=== PATIENT | female | born 1940 | race Caucasian/White ===

== ENCOUNTER 2023-07-28 10:01 | Emergency (ER) | payer OTHER, SELFPAY ==
[2023-07-28 10:05] VITALS: BP 108/55
[2023-07-28 10:39] VITALS: BMI 23.9
--- NOTE | 2023-07-28 10:40 | ED.GENMED ---
History of Present Illness
General
Chief Complaint: Headache
Source: patient
Exam Limitations: none
Time Seen by Provider: 07/28/23 10:27
Travel History
Have you had any contact with someone who has COVID-19?: No
Do you have any symptoms of coronavirus? Fever > 100 degrees, chills, cough, shortness of breath, sore throat, loss of taste or smell, muscle aches, or headache?: No
History of Present Illness
History of Present Illness:
82-year-old female on Eliquis for history of atrial fibrillation presents with fatigue neck pain and headache. This was preceded by several days of multiple episodes of loose watery stool. She has been taking Imodium which seems to have slowed the
diarrhea down. She denies any significant abdominal pain. She feels that she looks pale. She denies any double vision blurry vision or loss of vision. She states the back of her head and neck are very stiff. She has trouble moving her neck
[id number]. [place]. No chest pain. No other complaints at this time
Phy Exam
Physical Exam
Physical Exam:
General: Well-appearing female no acute respiratory distress
HEENT: Normocephalic atraumatic mucosa dry
Heart: Irregular rate and rhythm no murmurs
Lungs: Clear no wheeze
Abdomen: Soft nontender nondistended
Musculoskeletal exam: Patient has tenderness about the cervical spine and has significant decreased range of motion cervical spine.
Neurologic: Alert pupils equal round reactive to light good strength to the upper and lower extremity
Course
Orders/Labs/Results
Orders:
Orders
07/28/23 10:39
CT Cervical Spine W/o Iv Contr Urgent
Comment:
Reason For Exam: neck pain
CT Head W/o Iv Contrast Urgent
Comment:
Reason For Exam: headache, on Eliquis
0.9% Sodium Chloride 1000 ml [Nss] 1,000 ml IV BOLUS
07/28/23 10:50
Complete Blood Count/With Diff Urgent
Comprehensive Metabolic Panel Urgent
Abnormal Lab Results
07/28/23
10:50
WBC 15.0 H 10^3/uL
(4.8-10.8)
RDW 15.0 H %
(11.5-14.5)
Abs Immat Gran (auto) 0.1 H 10^3/uL
(0-0.05)
Absolute Neuts (auto) 9.5 H 10^3/uL
(1.4-6.5)
Absolute Monos (auto) 1.4 H 10^3/uL
(0.1-0.6)
Absolute Eos (auto) 0.8 H 10^3/uL
(0-0.7)
Immature Gran % 0.7 H %
(0-0.5)
Monocytes % 9.6 H %
(1.7-9.3)
Chloride 110 H mmol/L
(98-107)
Carbon Dioxide 17 L mmol/L
(22-30)
BUN 29 H mg/dl
(7-17)
Creatinine 1.2 H mg/dL
(0.6-1.0)
Glucose 111 H mg/dl
(70-99)
07/28/23 10:50
07/28/23 10:50
Vital Signs
Initial and Last Documented VS:
Initial Vital Signs
Temp Pulse Resp BP Pulse Ox
98.0 F 71 16 108/55 98
07/28/23 10:05 07/28/23 10:05 07/28/23 10:05 07/28/23 10:05 07/28/23 10:05
Last Documented Vital Signs
Temp Pulse Resp BP Pulse Ox
98.0 F 71 16 106/59 98
07/28/23 10:05 07/28/23 10:05 07/28/23 10:05 07/28/23 13:28 07/28/23 13:28
MDM/Problems Addressed
Differential Diagnosis Includes:
Headache neck pain loose stool and fatigue. Question viral illness or cervical strain versus hematoma or bleed secondary to anticoagulated state. Check electrolytes and hemoglobin. Fluids ordered
*Critical Care Note
Total Time (30-74mins, 75-104mins- exclusive of procedures): Not Applicable
Update Note
Update Note:
Abdominal exam upon reassessment still benign. Labs reviewed slight leukocytosis consistent with recent viral illness. CT of head and cervical spine negative. Patient feels little bit better after hydration. I suspect neck discomfort is of
cervical strain perhaps from sleeping in a different bed. Do not suspect meningitis. Patient is hungry wants to go home. Will recommend muscle relaxers and Tylenol. Stable for discharge
ED Attending Note
-
Portions of this chart may have been created with voice recognition software.� Occasional wrong word or��sound alike� substitutions may have occurred due to the inherent limitations of voice recognition software.
Discharge Plan
Departure
Patient Disposition: Home (Routine Discharge)
Date of Disposition: 07/28/23
Time of Disposition: 13:10
Patient with high blood pressure during this ER visit?: No
Discharge Problem:
Cervical strain
Instructions: Cervical Sprain ED
Prescriptions:
New
methocarbamol 500 mg tablet
500 mg PO Q8H PRN (Reason: spasm) Qty: 10 0RF
No Action
paroxetine HCl 20 MG tablet
20 mg PO DAILY
omeprazole 20 MG capsule,delayed release(DR/EC)
20 mg PO QPM
atorvastatin 40 MG tablet
40 mg PO DAILY
valsartan 80 MG tablet
80 mg PO DAILY
amlodipine 5 MG tablet
5 mg PO DAILY
metoprolol succinate 50 MG tablet extended release 24 hr
50 mg PO QPM
apixaban [Eliquis] 5 MG tablet
5 mg PO BID
Referrals:
NONE,* [Family Provider] -
Activity Restrictions/Additional Instructions:
Rest. Continue with Tylenol for pain. Continue with warm compresses. Drink plenty of clear liquids and start with bland diet. Return for worsening symptoms otherwise follow-up with family doctor
Interventions
Interventions:
*Risk Screen - Suicide Last Done: 07/28/23 10:40
*General Assessment Last Done: 07/28/23 10:40
*Neglect/Abuse Screening Last Done: 07/28/23 10:40
ED- Fall Risk Assessment Last Done: 07/28/23 10:40
*ED COVID-19 Vaccine History Last Done: 07/28/23 10:05
*Nursing Disposition Last Done: 07/28/23 13:28
ED- Neurological Assessment Last Done: 07/28/23 10:40
Discharge Date and Time
Discharge Date/Time: 07/28/23 13:30
Print Language: [id number]
[2023-07-28] MEDS: NSS 1000 IV (10:50)
[2023-07-28 11:09] LABS: % Basophils 0.2 % (0-2); % Eosinophils 5.1 % (0-6); % Immature Granulocytes 0.7 % (0-0.5); % Lymphocytes 21.3 % (20.5-51.1); % Monocytes 9.6 % (1.7-9.3); % Neutrophils 63.1 % (42.2-75.2); Absolute Eosinophils 0.8 10^3/uL (0-0.7); Absolute Immature Granulocytes 0.1 10^3/uL (0-0.05); Absolute Lymphocytes 3.2 10^3/uL (1.2-3.4); Absolute Monocytes 1.4 10^3/uL (0.1-0.6); Absolute Neutrophils 9.5 10^3/uL (1.4-6.5); Hematocrit 38.8 % (37.0-47.0); Hemoglobin 12.8 g/dL (12.0-16.0); Mean Corpuscular Hgb 29.4 pg (27.0-31.0); Mean Corpuscular Volume 89.2 fL (81.0-99.0); Mean Platelet Volume 9.7 fL (7.4-10.4); Nucleated Red Blood Cells % 0 %; Platelet Count 259 10^3/uL (130-400); Red Blood Cell Count 4.35 10^6/uL (4.20-5.40)
[2023-07-28 11:24] LABS: ALT (SGPT) 23 U/L (0-35); AST (SGOT) 32 U/L (14-36); Albumin 3.7 g/dl (3.5-5.0); Alkaline Phosphatase 88 U/L (38-126); Blood Urea Nitrogen 29 mg/dl (7-17); Calcium 8.9 mg/dl (8.4-10.2); Carbon Dioxide 17 mmol/L (22-30); Chloride 110 mmol/L (98-107); Estimated Creatinine Clearance 30 ml/min; Glucose 111 mg/dl (70-99); Potassium 4.4 mmol/L (3.5-5.1); Sodium 139 mmol/L (135-145); Total Bilirubin 0.4 mg/dl (0.2-1.3); Total Protein 6.4 g/dl (6.3-8.2); eGFR 45.76
[2023-07-28 13:28] VITALS: BP 106/59
== END 2023-07-28 13:30 | disposition home or self-care (01) ==
LOC: EMR 10:01
PROVIDERS: Physician Assistant; EMERGENCY PHYSICIAN Emergency Medicine
DX: S16.1XXA Strain of muscle, fascia and tendon at neck level, initial encounter (principal); X58.XXXA Exposure to other specified factors, initial encounter; Z79.01 Long term (current) use of anticoagulants
CPT/HCPCS: 99284; 96360; 70450; 72125; 80053; 85025

== ENCOUNTER → 2023-08-21 13:07 | Outpatient (REF) | payer OTHER, SELFPAY | LOC: WDC 13:07 | PROVIDERS: ATTENDING PHYSICIAN Physician Assistant | DX: Z12.31 Encounter for screening mammogram for malignant neoplasm of breast (principal) | CPT/HCPCS: 77063; 77067 ==

== ENCOUNTER → 2024-02-05 10:19 | Outpatient (REF) | payer OTHER, SELFPAY | LOC: RCS 10:19 | PROVIDERS: ATTENDING PHYSICIAN Internal Medicine Cardiovascular Disease; FAMILY PHYSICIAN Physician Assistant | DX: I48.91 Unspecified atrial fibrillation (principal) | CPT/HCPCS: 93306 ==

== ENCOUNTER → 2024-08-16 13:15 | Outpatient (REF) | payer OTHER, SELFPAY | LOC: HWRAD 13:15 | PROVIDERS: ATTENDING PHYSICIAN Physician Assistant Surgical; FAMILY PHYSICIAN Internal Medicine | DX: S82.145A Nondisplaced bicondylar fracture of left tibia, initial encounter for closed fracture (principal) | CPT/HCPCS: 73700 ==

== ENCOUNTER → 2024-08-23 13:10 | Outpatient (REF) | payer OTHER, SELFPAY | LOC: WDC 13:10 | PROVIDERS: ATTENDING PHYSICIAN Physician Assistant | DX: Z12.31 Encounter for screening mammogram for malignant neoplasm of breast (principal) | CPT/HCPCS: 77063; 77067 ==